=== PATIENT | female | born 1995 | race Caucasian/White ===

== ENCOUNTER 2024-06-29 09:28 | Emergency (ER) | payer MEDICAID ==
[~2024-06-29] VITALS: Ht 170.2 cm; Wt 72.7 kg
[2024-06-29 09:43] VITALS: TEMP 97.3
[2024-06-29] MEDS: SODIUM CHLORIDE 0.9% 1,000 ML IV ONE (09:49)
[2024-06-29] MEDS: diphenhdrAMINE HCL 50 MG/1 ML VL IV ONE (09:50)
[2024-06-29] MEDS: ONDANSETRON HCL 4 MG/2 ML VIAL IV ONE (09:53)
[2024-06-29] MEDS: KETOROLAC TROMETH 30 MG/ML 1ML VIAL IV ONE (09:56)
[2024-06-29 10:27] LABS: Basophils # (auto) 0 10 ^3/uL (0-0.2); Basophils % (auto) 0.1 % (0.0-2.0); Eosinophils # (auto) 0 10 ^3/uL (0-0.8); Hematocrit 42.6 % (36.0-46.0); Hemoglobin 14.4 g/dL (12.2-16.2); Lymphocytes # (auto) 1.8 10 ^3/uL (0.4-5.4); Lymphocytes % (auto) 13.8 % (10.0-50.0); Mean Corpuscular Hemoglobin 30.6 pg (28.0-32.0); Mean Corpuscular Hgb Conc. 33.9 g/dL (32.0-36.0); Mean Corpuscular Volume 90.1 fL (80.0-100.0); Monocytes # (auto) 0.6 10 ^3/uL (0-1.3); Monocytes % (auto) 4.5 % (0.0-12.0); Neutrophils # (auto) 10.6 10 ^3/uL (1.6-8.6); Neutrophils % (auto) 81.6 % (37.0-80.0); Platelet Count (auto) 313 10^3/uL (140-450); Red Blood Cells 4.73 10^6/uL (4.0-5.20); Red Cell Distribution Width 13.2 % (11.8-14.3); White Blood Cell 13.1 10^3/uL (4.4-10.8)
[2024-06-29 10:46] LABS: Alkaline Phosphatase 64 U/L (46-116); Anion Gap 13 (5-15); BUN/Creatinine Ratio 15.7 (10.0-20.0); Blood Urea Nitrogen 11 mg/dL (9-23); Calcium 10.2 mg/dL (8.7-10.4); Carbon Dioxide 17 mmol/L (20-31); Chloride 111 mmol/L (98-107); Glucose 130 mg/dL (74-106); Potassium 3.5 mmol/L (3.5-5.1); Sodium 141 mmol/L (136-145)
[2024-06-29 10:47] LABS: Albumin 5.1 g/dL (3.2-4.8); Aspartate Aminotransferase 11 U/L (13-40); Bilirubin, Total 0.6 mg/dL (0.2-1.0); Total Protein 7.5 g/dL (5.7-8.2)
[2024-06-29 10:50] LABS: Alanine Aminotransferase < 9 U/L (7-40)
[2024-06-29 11:00] VITALS: PULSE 84; RESP 28; O2SAT 100
[2024-06-29] MEDS: SODIUM CHLORIDE 0.9% 2,000 ML IV ONE (11:02)
[2024-06-29 11:07] LABS: Lipase 33 U/L (12-53)
[2024-06-29] MEDS: MORPHINE SULFATE 4 MG/ML SYR/VIAL IV ONE (11:20)
[2024-06-29] MEDS: TAMSULOSIN HYDROCHLORIDE 0.4 MG CAP PO ONE (11:25)
[2024-06-29 11:45] LABS: Urine Bacteria FEW /hpf (None Seen); Urine Blood Negative /uL (Negative); Urine Clarity Clear (Clear); Urine Color Yellow (Yellow); Urine Mucus FEW (None Seen); Urine Protein, UAD 1+ (Negative); Urine Specific Gravity 1.028 (1.001-1.035); Urine Urobilinogen Normal (Negative); Urine WBC <1 /hpf (0 - 5); Urine pH 8.5 (5.0-9.0)
[2024-06-29 11:58] VITALS: BP 125/65; PULSE 74; RESP 24; O2SAT 100
[2024-06-29 11:58] LABS: Amphetamine Screen, Urine Neg (NEGATIVE); Barbiturate Scree,Urine Neg (NEGATIVE); Benzodiazephine Screen, Urine Neg (NEGATIVE); Cocaine Screen, Urine Neg (NEGATIVE); Opiate Scree,Urine Neg (NEGATIVE); Phencyclidine Screen, Urine Neg (NEGATIVE)
[2024-06-29 11:59] LABS: Cannabinoid Screen, Urine Pos (NEGATIVE)
[2024-06-29] MEDS ORDERED: ZOFR4T PO (12:13)
[2024-06-29] MEDS ORDERED: HYDR-4902 PO (12:13)
[2024-06-29] MEDS ORDERED: TAMS-35 PO (12:13)
== END 2024-06-29 12:48 | disposition home or self-care (01) ==
LOC: EDBD 09:28 → ER 09:28 → EDUNIT# 09:28 → ER 12:48
DX: N20.0 Calculus of kidney (principal); F12.10 Cannabis abuse, uncomplicated; Z87.442 Personal history of urinary calculi; Z79.899 Other long term (current) drug therapy
CPT/HCPCS: 36415; 74176; 80053; 80307; 81001; 83690; 85025; 96361; 96374; 96375; 99285; J1200; J1885; J2270; J7030; J2405